=== PATIENT | male | born 1980 | race Caucasian/White ===

== ENCOUNTER 2023-10-14 20:11 | Emergency (ER) | payer OTHER ==
--- NOTE | 2023-10-14 21:01 | ED Physician Documentation ---
History of Present Illness - Stated complaint Stated Complaint: SYNCOPE - Chief complaint Chief Complaint: Abd Pain - History obtained from History obtained from: Patient - Additonal information Additional information: HPI from patient as well as his (in ED at bedside). Patient presents due to syncopal episode at home approximately 30 to 45 minutes [employer]. This occurred while he was on the toilet straining to have a bowel movement; patient says he has been feeling constipated for the last 1 to 2 days. LOC is estimated to be brief (less than 30 seconds), and the patient had subsequent rapid return to baseline mental status. Patient denies chest pain, palpitations, shortness of breath. The patient is note that he has had 2 or 3 previous, recent syncopal episodes (over past few weeks). On one of these recent syncopal episodes, the patient fell forward and struck his forehead against the wall, sustaining an abrasion. Review of Systems Constitutional: reports: Reviewed and negative Cardiac: reports: Reviewed and negative Respiratory: reports: Reviewed and negative GI: reports: Constipation. denies: Abdominal Pain, Abdominal Swelling, Nausea, Vomiting Musculoskeletal: denies: Extremity swelling Neurologic: reports: Syncope. denies: Generalized weakness, Focal weakness, Numbness, Seizure, Confused, Altered mental status, Headache PD PAST MEDICAL HISTORY - Past Medical History Past Medical History: No Cardiovascular: None Respiratory: None Neuro: None GI: None : None HEENT: None Psych: None Musculoskeletal: None Derm: None - Past Surgical History Past Surgical History: No - Allergies Allergies/Adverse Reactions: Allergies Allergy/AdvReac Type Severity Reaction Status Date / Time No Known Drug Allergies Allergy Verified 10/14/23 20:15 - Social History Does the pt smoke?: No Smoking Status: Never smoker Does the pt drink ETOH?: No Does the pt have substance abuse?: No - Immunizations Immunizations are current?: Yes - POLST Patient has POLST: No PD ED PE NORMAL - Vitals Vital signs reviewed: Yes - General General: Alert and oriented X 3, No acute distress, Well developed/nourished - HEENT HEENT: PERRL, EOMI, Moist mucous membranes, Other (healing right forehead abrasion. 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 Relevant findings are: Rate: Rate (enter#) (115) Rhythm: Sinus tachycardia [place]: LAD, Anterior hemiblock Intervals: RBBB QRS: LVH Ischemia: Normal ST segments. No: Q waves Compare to prior EKG: Old EKG unavailable Computer interpretation: Disagree with computer (no ST elevations) - Labs Labs: Laboratory Tests 10/14/23 10/14/23 21:45 21:45 WBC 6.5 RBC 4.87 Hgb 16.4 Hct 47.6 MCV 97.7 H MCH 33.7 H MCHC 34.5 RDW 13.2 Plt Count 200 MPV 9.2 Neut # (Auto) 2.7 Lymph # (Auto) 2.7 [place] # (Auto) 0.8 Eos # (Auto) 0.1 Baso # (Auto) 0.1 Absolute Nucleated RBC 0.00 Nucleated RBC % 0.0 Sodium 141 Potassium 3.6 Chloride 101 Carbon Dioxide 29 Anion Gap 11.0 BUN 9 Creatinine 0.7 Estimated GFR (MDRD) 124 Glucose 114 H Calcium 8.7 Total Bilirubin 0.6 AST 100 H ALT 69 H Alkaline Phosphatase 127 H Troponin I High Sens 19.7 Total Protein 7.5 Albumin 4.5 Globulin 3.0 Albumin/Globulin Ratio 1.5 Lipase 48 - Rads (name of study) CTH Relevant Findings:: Prelim report reviewed, See rad report CXR Relevant Findings:: Prelim report reviewed, See rad report PD Medical Decision Making - ED course Complexity details: reviewed results, re-evaluated patient, considered differential, d/w patient ED course: No concerning nor diagnostic findings on CBC, ER abdominal panel (mildly elevated AST, ALT, and alkaline phosphatase noted). Normal hs,cTn (19.7). Unremarkable CTH, CXR. EKG is notable for sinus tachycardia with right bundle branch block and left anterior fascicular block, left axis deviation and left ventricular hypertrophy.No previous EKG available for comparison. No EKG findings s/o ACS. Early in ED stay, patient had significant sinus tachycardia with heart rates in the 130s. During ED stay, he is given 1 L normal saline IV; over the course of ED stay, his heart rate steadily improved to 90s-100s. Patient repeatedly tells me his heart rate is "always high". The cause of patient's syncopal episodes is unclear. Tonight's episode occurred with inciting/provoking event of straining to have BM, which would suggest vaso- vagal etiology. Patient and his describe a few other, recent episodes of syncope which have less clear inciting event/factors. Results d/w patient including EKG abnormalities. Return precautions were carefully reviewed. I emphasized the need for follow-up/reevaluation by PCP. Departure - Departure Disposition: 01 Home, Self Care Clinical Impression: Right bundle branch block, Left anterior fascicular hemiblock Syncope Qualifiers: Syncope type: unspecified Qualified Code(s): R55 - Syncope and collapse Condition: Good Instructions: Block Right Bundle Branch, ED Fainting Unkn Cause Follow-Up: [facility] [Provider Group] Comments: There were no concerning nor diagnostic findings on tonight's tests, including the blood tests, CT scan of your head, and the chest x-ray. There were abnormalities on your EKG but, as we discussed, these findings would not explain your episodes of passing out nor are they cause for immediate alarm/concern. You do need to follow-up with your primary care provider regarding further testing, both for the abnormal EKG as well as potential causes of the episodes you have been having. You might need referral to specialists, such as a neurologist or first responder. It is very important that you start the process of arranging follow-up in the morning by calling your primary care provider's office and arranging for immediate follow-up appointment. Regarding your constipation, you are being provided with milk of magnesia and a glycerin suppository. When you get home, insert the suppository and take the milk of magnesia. Remember that one possible cause of your loss of consciousness could be straining to have a bowel movement. When these medications "kick in", you might have abdominal cramping and some degree of straining. You should have someone with you to help you to the floor if you are feeling lightheaded. Forms: PCP List Discharge Date/Time: 10/15/23 01:14
[2023-10-14] MEDS ORDERED: SODIUM CHLORIDE 0.9% 1,000 ML IV STA (21:35)
[2023-10-14 21:53] LABS: BASOPHILS # (AUTO) 0.1 10^3/uL (0.0-0.1); BASOPHILS % (AUTO) 1.7 %; EOSINOPHILS # (AUTO) 0.1 10^3/uL (0.0-0.7); EOSINOPHILS % (AUTO) 1.2 %; HCT - HEMATOCRIT 47.6 % (42.0-52.0); HGB - HEMOGLOBIN 16.4 g/dL (14.0-18.0); LYMPHOCYTES # (AUTO) 2.7 10^3/uL (1.5-3.5); MEAN CORPUSCULAR HEMOGLOBIN 33.7 pg (27.0-31.0); MEAN CORPUSCULAR HGB CONC 34.5 g/dL (32.0-36.0); MEAN CORPUSCULAR VOLUME 97.7 fL (80.0-94.0); MEAN PLATELET VOLUME 9.2 fL (7.4-11.4); MONOCYTES # (AUTO) 0.8 10^3/uL (0.0-1.0); MONOCYTES % (AUTO) 11.9 %; NEUTROPHILS # (AUTO) 2.7 10^3/uL (1.5-6.6); NEUTROPHILS % (AUTO) 42.4 %; PLT - PLATELET COUNT 200 10^3/uL (130-450); RED BLOOD COUNT 4.87 10^6/uL (4.70-6.10); RED CELL DISTRIBUTION WIDTH 13.2 % (12.0-15.0); WHITE BLOOD COUNT 6.5 x10^3/uL (4.8-10.8)
[2023-10-14 22:11] LABS: ALBUMIN 4.5 g/dL (3.2-5.5); ALBUMIN/GLOBULIN RATIO 1.5 (1.0-2.2); BILIRUBIN,TOTAL 0.6 mg/dL (0.2-1.0); CALCIUM 8.7 mg/dL (8.5-10.3); CREATININE 0.7 mg/dL (0.6-1.3); POTASSIUM 3.6 mmol/L (3.5-4.5); TOTAL PROTEIN 7.5 g/dL (6.4-8.9)
[2023-10-14 22:14] LABS: TROPONIN I HIGH SENSITIVITY 19.7 ng/L (2.3-19.7)
--- NOTE | 2023-10-14 23:29 | XRAY Report ---
PROCEDURE: Chest 2 View X-Ray INDICATIONS: syncope TECHNIQUE: 2 views of the chest were acquired. COMPARISON: None. FINDINGS: Surgical changes and devices: None. Lungs and pleura: No pleural effusions or pneumothorax. Lungs are clear. Mediastinum: Mediastinal contours appear normal. Heart size is normal. Bones and chest wall: No suspicious bony lesions. Overlying soft tissues appear unremarkable. IMPRESSION: No acute cardiopulmonary process. Reviewed by: Giuliano Joseph on 10/14/2023 11:27 PM [facility] Approved by: Giuliano Joseph on 10/14/2023 11:27 PM [facility] Station ID: [id number]
--- NOTE | 2023-10-14 23:30 | CT Report ---
PROCEDURE: HEAD WO INDICATIONS: head injury, syncope TECHNIQUE: Noncontrast 4.5 mm thick angled axial sections acquired from the foramen magnum to the vertex. For r adiation dose reduction, the following was used: automated exposure control, adjustment of mA and/or kV according to patient size. COMPARISON: None. FINDINGS: Image quality: Excellent. CSF spaces: Basal cisterns are patent. No extra-axial fluid collections. Ventricles are normal in size and shape. Brain: No midline shift. No intracranial masses or hemorrhage. Jewell-white matter interface is norm al. Skull and face: Calvarium and visualized facial bones are intact, without suspicious lesions. Sinuses: Visualized sinuses and mastoids are clear. IMPRESSION: No acute intracranial pathology. Reviewed by: Giuliano Joseph on 10/14/2023 11:28 PM [facility] Approved by: Giuliano Joseph on 10/14/2023 11:28 PM [facility] Station ID: [id number]
[2023-10-15 00:30] VITALS: BP 139/95; O2SAT 98
[2023-10-15] MEDS ORDERED: GLYCERIN ADULT SUPP PR STA (00:45)
[2023-10-15] MEDS ORDERED: MAGNESIUM HYDROXIDE 2,400 MG/30 ML UDC PO STA (00:45)
== END 2023-10-15 01:14 | disposition home or self-care (01) ==
LOC: ED 20:11
DX: R55 Syncope and collapse (principal); K59.00 Constipation, unspecified; R00.0 Tachycardia, unspecified; I45.2 Bifascicular block
CPT/HCPCS: 36415; 70450; 71046; 80053; 83690; 84484; 85025; 93005; 99284; A9270